=== PATIENT | male | born 1950 ===

== ENCOUNTER 2022-03-26 06:04 | Day surgery (SDC) | payer MEDICARE, OTHER ==
[~2022-03-26] VITALS: Ht 162.6 cm; Wt 62.4 kg
--- NOTE | 2022-03-26 09:38 | NUR ---
RECENTLY GIVEN REPORT AND ASSUMING CARE OF PT.
--- NOTE | 2022-03-26 10:05 | NUR ---
Patient up to Ambulate independently. Gait steady. Discharge instructions reviewed with patient. Patient verbalizes understanding. Copy given to patient to take home, WELL . Patient States Post-Procedure ride home has been arranged. Discharged via wheelchair to private car for ride home. ABD BINDER PLACED AND GIVEN INSTRUCTIONS FOR BINDER AND NOT HAVING IT ON WHILE SHOWERING. PT CONTINUES TO DECLINE PAIN MEDICATION. PT TOLERATING PO.
== END 2022-03-26 10:05 | disposition home or self-care (01) ==
LOC: ORSCMMR 06:04 → ORD 07:30 → ORSCMMR 07:30
PROVIDERS: Surgery
PROC: 0WUF4JZ Supplement Abdominal Wall with Synthetic Substitute, Percutaneous Endoscopic Approach (ICD-10-PCS; principal; 2022-03-26 07:30)
DX: K42.0 Umbilical hernia with obstruction, without gangrene (principal); K21.9 Gastro-esophageal reflux disease without esophagitis; Z79.899 Other long term (current) drug therapy
CPT/HCPCS: A9270; C1781; J0690; J1100; J1885; J2250; J2405; J2704; J2795; J3010; J7120